=== PATIENT | female | born 1940 | race Caucasian/White ===

== ENCOUNTER 2018-02-26 06:39 | Day surgery (SDC) | payer BC ==
[2018-02-26 07:55] LABS: PROTIME 16.4 Sec (11.9-14.9); PT RATIO 1.3
[2018-02-26 07:56] LABS: PARTIAL THROMBOPLASTIN TIME 33.2 Sec (25.0-35.0)
[2018-02-26 08:03] LABS: POTASSIUM 4.5 mmol/L (3.5-5.1)
[2018-02-26] MEDS ORDERED: LIDOCAINE 1% (MPF) 30 ML INJ (08:31)
[2018-02-26] MEDS ORDERED: ONDANSETRON 4 MG INJ IV ×2 (09:00→09:30)
[2018-02-26] MEDS ORDERED: morphine 10 MG INJ IM (09:00)
[2018-02-26] MEDS: LIDOCAINE 1% (MPF) 30 ML INJ INJ (09:20)
[2018-02-26] MEDS ORDERED: CEFAZOLIN 1 GM INJ (09:21)
[2018-02-26] MEDS ORDERED: METOCLOPRAMIDE 10 MG INJ IV (09:30)
[2018-02-26] MEDS ORDERED: DIPHENHYDRAMINE 50 MG INJ IV (09:30)
[2018-02-26] MEDS ORDERED: HYDROmorphONE 1 MG/5 ML IV SYRINGE IV ×2 (09:30)
[2018-02-26] MEDS ORDERED: FENTAnyl 50 MCG/ML VIAL IV (09:30)
[2018-02-26] MEDS ORDERED: PROPOFOL 20 ML (09:38)
[2018-02-26] MEDS ORDERED: LIDOCAINE 100 MG SYRINGE (09:38)
== END 2018-02-26 11:06 | disposition home or self-care (01) ==
LOC: SDS 06:39
DX: Z45.010 Encounter for checking and testing of cardiac pacemaker pulse generator [battery] (principal); I45.9 Conduction disorder, unspecified; I12.0 Hypertensive chronic kidney disease with stage 5 chronic kidney disease or end stage renal disease; N18.6 End stage renal disease; Z99.2 Dependence on renal dialysis; E11.9 Type 2 diabetes mellitus without complications
CPT/HCPCS: 33228; 82962; 84132; 85610; 85730; 88300; 93005

== ENCOUNTER 2018-02-28 22:10 | Emergency (ER) | payer BC | END 2018-03-01 01:19 | disposition home or self-care (01) | LOC: E/R 22:10 | DX: T81.89XA Other complications of procedures, not elsewhere classified, initial encounter (principal); I97.618 Postprocedural hemorrhage of a circulatory system organ or structure following other circulatory system procedure; I10 Essential (primary) hypertension; E11.9 Type 2 diabetes mellitus without complications; Y71.3 Surgical instruments, materials and cardiovascular devices (including sutures) associated with adverse incidents; Z79.4 Long term (current) use of insulin; Z79.82 Long term (current) use of aspirin; Z99.2 Dependence on renal dialysis | CPT/HCPCS: 99282 ==